=== PATIENT | male | born 1995 | race Caucasian/White ===

== ENCOUNTER 2021-07-26 04:48 | Outpatient (CLI) | payer OTHER | END 2021-07-26 04:49 | disposition critical access hospital (66) | LOC: EMS 04:48 | DX: R45.851 Suicidal ideations (principal) | CPT/HCPCS: A0425; A0429 ==

== ENCOUNTER 2021-07-26 05:07 | Emergency (ER) | payer OTHER ==
--- NOTE | 2021-07-26 05:07 | ED Physician Documentation ---
PD HPI MHE - Stated complaint Stated Complaint: SI - History obtained from History obtained from: Patient, EMS - History of Present Illness Primary symptom: Suicidal ideation Contributing factors: Other (won't specify contributing/inciting event(s) except to say "a lot of personal stuff going on for too long") Similar symptoms before: Has not had sx before Recently seen: Not recently seen - Additional information Additional information: TERE. Patient called 911 from parking lot of [facility] saying he was thinking of hurting himself and that he had a loaded revolver with him in his vehicle. Police did indeed find patient in the parking lot; he was reportedly calm and cooperative and surrendered his weapon uneventfully, comes to ED via BLS voluntarily.He admits to drinking alcohol earlier tonight. Review of Systems Cardiac: reports: Reviewed and negative Respiratory: reports: Reviewed and negative GI: reports: Reviewed and negative Psychiatric: reports: Suicidal, Insomnia PD PAST MEDICAL HISTORY - Past Medical History Past Medical History: No - Present Medications Home Medications: Ambulatory Orders Medication Instructions Recorded Confirmed No Known Home Medications 07/26/21 07/26/21 - Allergies Allergies/Adverse Reactions: Allergies Allergy/AdvReac Type Severity Reaction Status Date / Time No Known Drug Allergies Allergy Verified 07/26/21 05:24 - Living Situation Living Arrangement: reports: At home PD ED PE NORMAL - Vitals Vital signs reviewed: Yes - General General: Alert and oriented X 3, No acute distress, Well developed/nourished - HEENT HEENT: PERRL, EOMI - Cardiac Cardiac: RRR, No murmur - Respiratory Respiratory: No respiratory distress, Clear bilaterally - Abdomen Abdomen: Soft, Non tender - Neuro Neuro: Alert and oriented X 3 Eye Opening: Spontaneous Motor: Obeys Commands Verbal: Oriented GCS Score: 15 Results - Vitals Vitals: Vital Signs - 24 hr 07/26/21 07/26/21 07/26/21 05:24 08:23 15:45 Temperature 36.3 C L 37.1 C 36.8 C Heart Rate 94 102 H 95 Respiratory 15 16 14 Rate Blood Pressure 145/96 H 118/45 L 157/78 H O2 Saturation 98 96 98 Oxygen O2 Source Room air - Labs Labs: Laboratory Tests 07/26/21 07/26/21 07/26/21 05:30 05:30 05:30 WBC 5.5 RBC 5.27 Hgb 16.6 Hct 48.1 MCV 91.3 MCH 31.5 H MCHC 34.5 RDW 12.1 Plt Count 226 MPV 9.6 Neut # (Auto) 2.5 Lymph # (Auto) 1.9 [place] # (Auto) 0.5 Eos # (Auto) 0.5 Baso # (Auto) 0.0 Absolute Nucleated RBC 0.00 Nucleated RBC % 0.0 Sodium 137 Potassium 3.6 Chloride 101 Carbon Dioxide 24 Anion Gap 12.0 BUN 14 Creatinine 0.8 Estimated GFR (MDRD) 117 Glucose 116 H Calcium 8.8 Total Bilirubin 0.9 AST 34 ALT 62 H Alkaline Phosphatase 98 Total Protein 7.8 Albumin 4.8 Globulin 3.0 Albumin/Globulin Ratio 1.6 Lipase 33 TSH 1.25 Salicylates < 6.0 Urine Opiates Screen Ur Oxycodone Screen Urine Methadone Screen Ur Propoxyphene Screen Acetaminophen < 10 L Ur Barbiturates Screen Ur Tricyclics Screen Ur Phencyclidine Scrn Ur Amphetamine Screen U Methamphetamines Scrn U Benzodiazepines Scrn Urine Cocaine Screen U Cannabinoids Screen Ethyl Alcohol 146.0 SARS-CoV-2 (PCR) 07/26/21 07/26/21 07/26/21 06:07 08:30 09:16 WBC RBC Hgb Hct MCV MCH MCHC RDW Plt Count MPV Neut # (Auto) Lymph # (Auto) [place] # (Auto) Eos # (Auto) Baso # (Auto) Absolute Nucleated RBC Nucleated RBC % Sodium Potassium Chloride Carbon Dioxide Anion Gap BUN Creatinine Estimated GFR (MDRD) Glucose Calcium Total Bilirubin AST ALT Alkaline Phosphatase Total Protein Albumin Globulin Albumin/Globulin Ratio Lipase TSH Salicylates Urine Opiates Screen NEGATIVE Ur Oxycodone Screen NEGATIVE Urine Methadone Screen NEGATIVE Ur Propoxyphene Screen NEGATIVE Acetaminophen Ur Barbiturates Screen NEGATIVE Ur Tricyclics Screen NEGATIVE Ur Phencyclidine Scrn NEGATIVE Ur Amphetamine Screen NEGATIVE U Methamphetamines Scrn NEGATIVE U Benzodiazepines Scrn NEGATIVE Urine Cocaine Screen NEGATIVE U Cannabinoids Screen NEGATIVE Ethyl Alcohol 75.3 SARS-CoV-2 (PCR) NOT DETECTED PD MEDICAL DECISION MAKING - ED course Complexity details: reviewed results, re-evaluated patient, considered differential, d/w patient ED course: patient tells me he does not want inpatient treatment but is agreeable to evaluation in ED. SW to be consulted in AM. Care of patient turned over to oncoming ED physician at end of my shift ending SW consult and eventual disposition Departure - Departure Disposition: 01 Home, Self Care Clinical Impression: Suicidal ideation, Anxiety Depression Qualifiers: Depression Type: reactive depression Qualified Code(s): F32.9 - Major depressive disorder, single episode, unspecified Condition: Stable Instructions: ED Stress React, ED Depression Comments: Please follow-up closely as arranged with social work today. If you begin feeling suicidal again, please call 911 immediately or seek help in any other way you can. Discharge Date/Time: 07/26/21 15:25
[2021-07-26 05:36] LABS: BASOPHILS % (AUTO) 0.7 %; EOSINOPHILS # (AUTO) 0.5 10^3/uL (0.0-0.7); EOSINOPHILS % (AUTO) 9.6 %; HCT - HEMATOCRIT 48.1 % (42.0-52.0); HGB - HEMOGLOBIN 16.6 g/dL (14.0-18.0); LYMPHOCYTES # (AUTO) 1.9 10^3/uL (1.5-3.5); MEAN CORPUSCULAR HEMOGLOBIN 31.5 pg (27.0-31.0); MEAN CORPUSCULAR HGB CONC 34.5 g/dL (32.0-36.0); MEAN CORPUSCULAR VOLUME 91.3 fL (80.0-94.0); MEAN PLATELET VOLUME 9.6 fL (7.4-11.4); MONOCYTES # (AUTO) 0.5 10^3/uL (0.0-1.0); MONOCYTES % (AUTO) 9.8 %; NEUTROPHILS # (AUTO) 2.5 10^3/uL (1.5-6.6); NEUTROPHILS % (AUTO) 45.7 %; PLT - PLATELET COUNT 226 10^3/uL (130-450); RED BLOOD COUNT 5.27 10^6/uL (4.70-6.10); RED CELL DISTRIBUTION WIDTH 12.1 % (12.0-15.0); WHITE BLOOD COUNT 5.5 x10^3/uL (4.8-10.8)
[2021-07-26 05:52] LABS: ACETAMINOPHEN < 10 ug/mL (10-30); ALBUMIN 4.8 g/dL (3.2-5.5); ALBUMIN/GLOBULIN RATIO 1.6 (1.0-2.2); ALKALINE PHOSPHATASE 98 IU/L (42-121); ALT ALANINE AMINOTRANSFERASE 62 IU/L (10-60); AST ASPARTATE AMINOTRANSFERASE 34 IU/L (10-42); BILIRUBIN,TOTAL 0.9 mg/dL (0.2-1.0); BUN - BLOOD UREA NITROGEN 14 mg/dL (6-20); CALCIUM 8.8 mg/dL (8.5-10.3); CARBON DIOXIDE - CO2 24 mmol/L (21-32); CHLORIDE 101 mmol/L (101-111); CREATININE 0.8 mg/dL (0.6-1.2); GFR - MDRD 117 (>89); GLUCOSE 116 mg/dL (70-100); LIPASE 33 U/L (22-51); POTASSIUM 3.6 mmol/L (3.5-5.0); SALICYLATE < 6.0 mg/dL; SODIUM 137 mmol/L (135-145); TOTAL PROTEIN 7.8 g/dL (6.7-8.2)
[2021-07-26 06:25] LABS: MUDS CUTOFF CONCENTRATIONS CUTOFF CONC BELOW:
[2021-07-26 06:36] LABS: AMPHETAMINE SCREEN,URINE NEGATIVE (NEGATIVE); BARBITURATE SCREEN,UR NEGATIVE (NEGATIVE); BENZODIAZEPINES SCREEN, URINE NEGATIVE (NEGATIVE); COCAINE SCREEN URINE NEGATIVE (NEGATIVE); METHADONE SCREEN, URINE NEGATIVE (NEGATIVE); METHAMPHETAMINES SCREEN, URINE NEGATIVE (NEGATIVE); OPIATE SCREEN, URINE NEGATIVE (NEGATIVE); OXYCODONE SCREEN, URINE NEGATIVE (NEGATIVE); PROPOXYPHENE SCREEN, URINE NEGATIVE (NEGATIVE); THC CANNABINOID SCREEN, URINE NEGATIVE (NEGATIVE); TRICYCLIC ANTIDEPRESSANT,URINE NEGATIVE (NEGATIVE)
--- NOTE | 2021-07-26 15:23 | ED Physician Documentation ---
ED Addendum - Addendum Addendum: The patient was signed out to me by Dr. Fields's change of shift, pending social work evaluation and final disposition. Patient was evaluated by social work in cooperation with the patient's command and ultimately, it was determined that the patient would be better off with outpatient treatment than inpatient. The patient's mother has arrived to stay with the patient from out of town, and the command is also going to be closely involved. The patient has outpatient resources and will be followed closely in this regard as well. He is earle for safety and is no longer feeling suicidal. Final impression: 1. Acute situational stress 2. Suicidal ideation Disposition: Home in improved condition. 07/26/21 15:21
[2021-07-26 15:48] VITALS: BP 157/78
== END 2021-07-26 15:25 | disposition home or self-care (01) ==
LOC: ED 05:07
DX: R45.851 Suicidal ideations (principal); F32.9 Major depressive disorder, single episode, unspecified; F41.9 Anxiety disorder, unspecified; F43.9 Reaction to severe stress, unspecified; Z20.822 Contact with and (suspected) exposure to COVID-19
CPT/HCPCS: 36415; 80053; 80306; 80307; 80320; 80329; 83690; 84443; 85025; 99283

== ENCOUNTER 2021-08-08 08:00 | Outpatient (CLI) | payer OTHER | END 2021-08-08 23:59 | disposition home or self-care (01) | LOC: LAB.N 08:00 | PROVIDERS: ATTEND Physician Assistant Medical | DX: A08.39 Other viral enteritis (principal); Z20.822 Contact with and (suspected) exposure to COVID-19 ==

== ENCOUNTER 2022-09-25 13:03 | Outpatient (CLI) | payer OTHER ==
--- NOTE | 2022-09-25 12:23 | Sleep Patient Instructions ---
Sleep Center Visit Summary - Patient Visit Information Reason for Visit: Initial visit for evaluation of patient for possible sleep disordered breathing or other sleep issues. - Patient Instructions Instructions Attached: Sleep Clinic Visit, Sleep Lab Test Additional Instructions: You will complete a sleep study, either an in-lab polysomnography (PSG) or home sleep study (HST). Then you will follow-up in office after the sleep study is completed to hear the results and talk about therapy if needed. You will be called by office staff to schedule this appointment but may contact us with any questions. - Clinic Information Contact: [facility] [address] [place] [address] [email or web address] T: [phone]
[2022-09-25 13:50] VITALS: BP 104/62
--- NOTE | 2022-09-25 13:50 | SLEEP CARE CONSULTATION ---
Information from patient questionnaire entered by Silvia Haddad. I have reviewed and concur with the information entered by Silvia Haddad. This document represents the service I personally performed and the decisions made by me, Grisel Jennings ARNP. History of Present Illness Service Date and Time: 09/25/2022 1303 Reason for Visit: New patient Chief Complaint: reports: Unrefreshed sleep, Frequent awakenings at night Date of Onset: SEVERAL MONTHS Usual bedtime: VARIES 1030-1130PM Time it takes to fall asleep: 1-2HRS Snores at night: No Observed to quit breathing while asleep: No Sleeps alone due to snoring: No Number of times waking at night: 3-4 Reasons for waking at night: reports: Other (UNKNOWN). denies: Choking, Snoring, Gasping for air Toss, Turn, or Twitch while sleeping: Yes Recalls having dreams: Yes Usually gets out of bed at: 7-8AM Feels refreshed in the morning: No Morning headache: Yes (4-5 times a week; 1-3HRS AFTER) Sleepy or fatigued during the day: Yes Ever fallen asleep while driving: No Takes day naps: No Prior sleep studies: No Additional HPI information: I had the pleasure of seeing KIRSTY CHERRY today regarding the possibility of him having a sleep disorder. His current complaints are unrefreshed sleep and frequent night awakenings. He states he has trouble falling asleep at night, 1-2 hours, sometimes longer. He also has trouble maintaining sleep at night, waking up on average 3-4 times a night. He does not feel rested typically in the mornings. He denies anyone telling him that he snores or has pauses in breathing when sleeping. He has been switching shifts at work frequently. He feels tired during the day but will not try to take a nap because then he cannot get to sleep until 2-3 AM. - Parasomnia Symptoms Ever been unable to move upon waking from sleep: Yes (twice in last 2 months) Walks in sleep: No Talks in sleep: No Ever acted out dreams in sleep: No Ever felt weak in the knees when startled or emotional: No Bothered by creepy, crawly, restless sensations in legs: No Problems with memory or concentration: Yes (sometimes has hard time retaining "stuff" or paying attention) Subjective Initial [place] Sleepiness Scale score: 7 (09/25/22) Past Medical History Past Medical History: reports: Other (no significant medical history per patient) Social History The patient's occupation is a AM. Patient is and lives in . Have you smoked in the past 12 months: No Alcohol use: Yes Alcohol amount and frequency: 1-2 STANDARD DRINKS A DAY Caffeine use: Yes Caffeine amount and frequency: 1-2 SOMETIMES 3 DAILY Family History Family history of sleep disordered breathing: Yes Family Hx Sleep Apnea: Grandparent: Snoring Allergies and Home Medications Known drug allergies: No Drug allergies reviewed: Yes Home medication list reviewed: Yes (no daily medications) Allergy and home medication list: Allergies No Known Drug Allergies Allergy (Verified 09/24/22 09:14) Review of Systems Weight gain over past 5 years: [phone]; has gone up and down over the last year due to stress Cardiovascular: denies: high blood pressure Gastrointestinal: denies: heartburn, difficulty swallowing Neurological: reports: headaches Psychiatric: reports: mood disorder. denies: anxiety, depression Ear/Nose/Throat: reports: wisdom teeth removed. denies: tonsillectomy Musculoskeletal: reports: joint pain, back pain, muscle pain or cramping Immunologic: reports: sneezing, itching, allergies to food or environment (seasonal) Physical Exam Vital signs obtained and entered by: SILVIA Galvan MA Blood Pressure: 104/62 (LEFT ARM) Cuff size: regular Heart Rate: 71 O2 Saturation: 97 Height: 6 ft 4 in Weight: 222 lb 12.8 oz Body Mass Index: 27.1 BMI Classification: Overweight Neck circumference: 16.5 Mouth and throat: narrow oropharynx Soft palate: long Hard palate: normal Uvula: normal Uvula visualization: 100% Mallampati Class I Tongue: enlarged in size with teeth welch on lateral edges Tonsils: 1+ Neck: normal w/o lymphadenopathy or thyromegaly Heart: regular rate and rhythm Lungs: clear bilaterally Impression and Plan 1. Suspected Obstructive Sleep Apnea-Hypopnea Syndrome, as suggested by a history of morning headache, frequent awakening during the night, unrefreshed sleep, insomnia and cognitive impairment. Narrow oropharynx and obesity are common predisposing factors for obstructive sleep apnea-hypopnea syndrome. I recommend proceeding to polysomnography to confirm the diagnosis and to assess severity. If the patient has significant sleep disordered breathing, a manual CPAP titration study will also be performed to find the optimal treatment pressure. I informed the patient of what the sleep studies involve and after some discussion, obtained agreement to proceed. The pathophysiology of obstructive sleep apnea-hypopnea syndrome was discussed with the patient and health risks of cardiovascular and cerebrovascular disease if not treated. Risks of drowsy driving discussed in detail and patient advised to avoid long distance driving and to pack puller at the first sign of drowsiness. Patient agreed to plan. * Schedule polysomnography +- manual CPAP titration study and return in 1-2 weeks after the study to discuss result and initiate therapy. * Avoid long distance driving or driving when feeling sleepy. * Avoid alcohol, sedative and muscle relaxant around bedtime. * Attempt to lose weight. * Review instructions provided by trained office staff on how to prepare for the sleep study. * Return for follow-up after sleep study completed. Counseling Topics: Weight loss health impact Visit Type: In Office Time Spent with Patient (minutes): 30 Provider Statement: I spent 100% of the Face to Face Visit with the patient with greater than 50% spent counseling the patient and coordination of care.
== END 2022-09-25 13:04 | disposition home or self-care (01) ==
LOC: SC 13:03
PROVIDERS: ATTEND Nurse Practitioner Family
DX: G47.8 Other sleep disorders (principal); R51.9 Headache, unspecified; E66.3 Overweight; Z68.27 Body mass index [BMI] 27.0-27.9, adult
CPT/HCPCS: 99203; 99212

== ENCOUNTER 2022-11-12 20:41 | Outpatient (CLI) | payer OTHER | END 2022-11-12 20:42 | disposition home or self-care (01) | LOC: SC 20:41 | PROVIDERS: ATTEND Nurse Practitioner Family | DX: G47.61 Periodic limb movement disorder (principal) | CPT/HCPCS: 95810 ==